=== PATIENT | female | born 1975 | race Caucasian/White ===

== ENCOUNTER 2024-12-11 06:28 | Day surgery (SDC) | payer OTHER, SELFPAY | END 2024-12-11 12:31 | disposition home or self-care (01) | LOC: GI 06:28 | PROVIDERS: ATTENDING PHYSICIAN Internal Medicine | DX: Z12.11 Encounter for screening for malignant neoplasm of colon (principal); D12.0 Benign neoplasm of cecum | CPT/HCPCS: 45385; 88305 ==